=== PATIENT | female | born 1990 ===

== ENCOUNTER 2018-10-30 14:28 | Emergency (ER) | payer MEDICAID, OTHER ==
[2018-10-30 14:40] VITALS: BMI 22.4
--- NOTE | 2018-10-30 15:50 | ED PDOC ---
Arrival/HPI - General Chief Complaint: Abdominal Pain Time Seen by Provider: 10/30/18 14:29 Historian: Patient - History of Present Illness Narrative History of Present Illness (Text): 10/30/18 17:22 27yo female who present with complaint of intermittent pelvic pain. States her LMP was September 12. She saw her OB for the pain and was told is okay but to follow up with ED if the pain persist. She came to ED for evaluation. She denies vaginal bleeding, fever, chills, nausea, vomiting, diarrhea, constipation, sick contact, travel, any other complaint. Past Medical History - Provider Review Nursing Documentation Reviewed: Yes - Psychiatric Hx Substance Use: No Family/Social History - Physician Review Nursing Documentation Reviewed: Yes Family/Social History: Unknown Family HX Smoking Status: Never Smoked Hx Alcohol Use: No Hx Substance Use: No Allergies/Home Meds Allergies/Adverse Reactions: Allergies No Known Allergies Allergy (Verified 10/30/18 14:52) Home Medications: Home Meds Medication Instructions Recorded Confirmed RX: No Known Home Med 10/30/18 10/30/18 Review of Systems - Physician Review All systems were reviewed & negative as marked: Yes - Review of Systems Constitutional: Normal Eyes: Normal ENT: Normal Respiratory: Normal Cardiovascular: Normal Gastrointestinal: Abdominal Pain. absent: Constipation, Diarrhea, Nausea, Vomiting, Hematochezia, Hematemesis Genitourinary Female: Normal Musculoskeletal: Normal Skin: Normal Neurological: Normal Endocrine: Normal Hemo/Lymphatic: Normal Psychiatric: Normal Physical Exam Vital Signs Reviewed: Yes Vital Signs Temp Pulse Resp BP Pulse Ox 10/30/18 14:29 97.9 F 84 18 109/75 98 Temperature: Afebrile Blood Pressure: Normal Pulse: Regular Respiratory Rate: Normal Appearance: Positive for: Well-Appearing, Non-Toxic, Comfortable Pain Distress: None Mental Status: Positive for: Alert and Oriented X 3 - Systems Exam Head: Present: Atraumatic, Normocephalic Pupils: Present: PERRL Extroacular Muscles: Present: EOMI Conjunctiva: Present: Normal Mouth: Present: Moist Mucous Membranes Neck: Present: Normal Range of Motion Respiratory/Chest: Present: Clear to Auscultation, Good Air Exchange. No: Respiratory Distress, Accessory Muscle Use Cardiovascular: Present: Regular Rate and Rhythm, Normal S1, S2. No: Murmurs Abdomen: No: Tenderness, Distention, Peritoneal Signs Back: Present: Normal Inspection Upper Extremity: Present: Normal Inspection. No: Cyanosis, Edema Lower Extremity: Present: Normal Inspection. No: Edema Neurological: Present: GCS=15, CN II-XII Intact, Speech Normal Skin: Present: Warm, Dry, Normal Color. No: Rashes Psychiatric: Present: Alert, Oriented x 3, Normal Insight, Normal Concentration Medical Decision Making ED Course and Treatment: 10/30/18 19:24 PT presented to ED for stated history. she was not in any distress. hemodynamically stable Labs Transvaginal Us 1L NS Labs was reviewed and unremarkable Transvaginal US IMPRESSION: Single live intrauterine gestational sac with mean gestational age of 7 weeks and 0 day. The estimated date of delivery by ultrasound is 06/18/2019. The ultrasound dates correspond with the clinical dates. All result was DW the pt. She denied vaginal bleeding in ED. She was strongly advised to f/u with her OB - RAD Interpretation Radiology Orders: 10/30/18 14:59 TRANSVAGINAL [US] Stat Disposition/Present on Arrival - Present on Arrival Any Indicators Present on Arrival: No History of DVT/PE: No History of Uncontrolled Diabetes: No Urinary Catheter: No History of Decub. Ulcer: No History Surgical Site Infection Following: None - Disposition Have Diagnosis and Disposition been Completed?: Yes Diagnosis: Abdominal pain, Disposition: HOME/ ROUTINE Disposition Time: 17:25 Patient Plan: Discharge Condition: STABLE Discharge Instructions (ExitCare): Acute Abdomen (Belly Pain) Additional Instructions: Follow up with your OB Return to ED for any new or worsening symptoms Referrals: Edi Huff MD [Staff Provider] - Follow up with primary Forms: [employer] (Dutch)
[2018-10-30 16:07] LABS: BASO # 0.01 K/mm3 (0.0-2.0); BASO % 0.1 % (0.0-3.0); EOS % 0.4 % (1.5-5.0); GRAN # 4.58 (1.4-6.5); GRAN % 63.5 % (50.0-68.0); HEMOGLOBIN 12.9 g/dL (12.0-16.0); LYMPH # 2.2 (1.2-3.4); LYMPH % 29.8 % (22.0-35.0); MEAN CELL VOLUME 79.7 fl (80.0-105.0); MEAN CORPUSCULAR HEMOGLOBIN 26.9 pg (25.0-35.0); MEAN CORPUSCULAR HGB CONC 33.8 g/dl (31.0-37.0); MEAN PLATELET VOLUME 9.4 fl (7.0-11.0); MONO # 0.5 (0.1-0.6); MONO % 6.2 % (1.0-6.0); RBC 4.79 10^6/uL (3.5-6.1); RED CELL DISTRIBUTION WIDTH 14.7 % (11.5-14.5); WHITE BLOOD COUNT 7.2 10^3/uL (4.5-11.0)
[2018-10-30 16:17] LABS: INR 1.02; PARTIAL THROMBOPLASTIN TIME 26.7 Seconds (25.1-36.5); PROTHROMBIN TIME 11.6 SECONDS (9.4-12.5)
[2018-10-30 16:21] LABS: ALBUMIN 4.2 g/dL (3.0-4.8); BLOOD UREA NITROGEN 11 mg/dL (7-21); CALCIUM 9.4 mg/dL (8.4-10.5); GFR NON-AFRICAN AMERICAN > 60
[2018-10-30 16:25] LABS: URINE BILIRUBIN NEGATIVE (NEGATIVE); URINE BLOOD NEGATIVE (NEGATIVE); URINE GLUCOSE (UA) NEGATIVE (NEGATIVE); URINE LEUKOCYTE ESTERASE NEGATIVE Leu/uL (NEGATIVE); URINE PROTEIN TRACE mg/dL (<30 mg/dL); URINE UROBILINOGEN 0.2 E.U./dL (<1 E.U./dL)
[2018-10-30 16:27] LABS: URINE APPEARANCE CLEAR (CLEAR); URINE COLOR YELLOW (YELLOW)
[2018-10-30 16:30] LABS: ALT/SGPT 22 U/L (7-56); AST/SGOT 24 U/L (14-36)
[2018-10-30 16:37] LABS: URINE BACTERIA TRACE (NEG); URINE RBC 0 - 2 /hpf (0-2); URINE WBC NEGATIVE /hpf (0-6)
--- NOTE | 2018-10-30 16:52 | US ---
Date of service: 10/30/2018 PROCEDURE: OB Pelvic Ultrasound HISTORY: /abdominal pain COMPARISON: None available. FINDINGS: UTERUS: Single Live intrauterine gestation. CRL measures 0.83 cm equivalent to 6 weeks and 5 days of gestational age. Gestational sac diameter measures 2.44 cm equivalent to 7 weeks and 1 day of gestational age. age (Ultrasound estimated): 7 weeks and 0 days Date of delivery (Ultrasound estimated) : 06/18/2019 Heart rate: 151 bpm. Amy-gestational hemorrhage: None. Uterus measures 11.4 x 6.3 x 7.4 cm. No mass CERVIX: Long and closed. No cervical abnormality seen. RIGHT OVARY: Measures 3.4 x 1.8 x 3.4 cm. No mass. Normal flow. LEFT OVARY: Measures 3.2 x 1.7 x 2.8 cm. No mass. Normal flow. FREE FLUID: None. OTHER FINDINGS: None. IMPRESSION: Single live intrauterine gestational sac with mean gestational age of 7 weeks and 0 day. The estimated date of delivery by ultrasound is 06/18/2019. The ultrasound dates correspond with the clinical dates.
[2018-10-30 17:46] VITALS: BP 118/67; PULSE 70; RESP 16; TEMP 98; O2SAT 99
== END 2018-10-30 17:50 | disposition home or self-care (01) ==
LOC: ED 14:28
DX: O26.891 Other specified pregnancy related conditions, first trimester (principal); R10.2 Pelvic and perineal pain; Z3A.01 Less than 8 weeks gestation of pregnancy
CPT/HCPCS: 76817; 80053; 81001; 83735; 84702; 85025; 85610; 85730; 86850; 86900; 99282; G0480